=== PATIENT | male | born 1995 | race African-American/Black ===

== ENCOUNTER 2016-09-20 23:06 | Emergency (ER) | payer OTHER ==
[~2016-09-20] VITALS: Ht 172.7 cm; Wt 68.8 kg
[~2016-09-20 23:06] MED LIST: CONCERTA36 MG; CONCERTA54 MG PO; IBUPROFEN200 M1 PO; LEVOTHROID,S0.137 MG PO; LEVOTHROID150 MCG PO; LEVOTHYROXINE137 MCG; LEVOTHYROXINE137 MCG PO; LORATADINE10 M2 PO; VENTOLIN HFA18 GM IH
[2016-09-21] MEDS ORDERED: LIDODERM 5% P1 PATCH TD (02:46)
[2016-09-21] MEDS ORDERED: IBUPROFEN400 MG PO (02:46)
[2016-09-21 03:27] VITALS: BP 106/68
== END 2016-09-21 03:16 | disposition home or self-care (01) ==
LOC: EME 23:06
DX: S30.0XXA Contusion of lower back and pelvis, initial encounter (principal); R51 Headache; R07.9 Chest pain, unspecified; S40.021A Contusion of right upper arm, initial encounter; S40.022A Contusion of left upper arm, initial encounter; W20.8XXA Other cause of strike by thrown, projected or falling object, initial encounter; Y99.0 Civilian activity done for income or pay; E03.9 Hypothyroidism, unspecified; J45.909 Unspecified asthma, uncomplicated; F17.200 Nicotine dependence, unspecified, uncomplicated
CPT/HCPCS: 72100; 99281; 99284

== ENCOUNTER 2016-11-16 13:51 | Emergency (ER) | payer OTHER ==
[~2016-11-16] VITALS: Ht 172.7 cm; Wt 76.2 kg
[~2016-11-16 13:51] MED LIST changes: +IBUPROFEN400 MG PO; +LIDODERM 5% P1 PATCH TD
[2016-11-16 16:19] VITALS: BP 121/58
== END 2016-11-16 16:20 | disposition home or self-care (01) ==
LOC: EME 13:51
DX: S83.91XA Sprain of unspecified site of right knee, initial encounter (principal); M89.8X5 Other specified disorders of bone, thigh; E03.9 Hypothyroidism, unspecified; X50.1XXA Overexertion from prolonged static or awkward postures, initial encounter
CPT/HCPCS: 73564; 99281; 99284; J3010